=== PATIENT | male | born 1965 ===

== ENCOUNTER 2022-10-03 08:54 | Outpatient (REF) | payer OTHER, SELFPAY ==
--- NOTE | 2022-10-03 10:06 | MHC.AU.HA1 ---
Hearing Aid Evaluation Date of Visit: 10/03/22 Historical Information: Description of Hearing: Normal hearing thresholds 250-1500 Hz, dropping to a moderate sensorineural hearing loss at 4000 Hz, rising to borderline normal hearing levels at 8000 Hz, bilaterally Current personal amplification information, if applicable: NONE Summary: Doni was referred and medically cleared for binaural hearing aids by ENT Perla Sarkar MD to better facilitate communication as patient reports difficulties understanding speech and needs volume of TV increased significantly more than others he is with. 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 Advise custom hearing protection/[id number] to use for exposure. Hearing Aid Prescription: Based on the individual?s shared listening needs, communication environments, dexterity, desire for connectivity, and personal preferences, the following prescription for amplification has been made: Right ear: Make, Model, Color: Phonak Audeo L 70 -R [place] Brown Battery Size: Rechargeable Internal Medicine Specialist/Slim Tube: #2 M Type of Earmold/Dome/CShell/SlimTip: Open Dome Left ear: Left ear prescription to be same as Right Hearing Aid above: Make, Model, Color: Phonak Audeo L 70 -R [place] Brown Battery Size: Rechargeable Internal Medicine Specialist/Slim Tube: #2 M Type of Earmold/Dome/CShell/SlimTip: Open Dome Plan of Care: Patient wishes to purchase hearing aids as prescribed Action Taken/Action Needed: Hearing Instrument Fitting to be scheduled when materials arrive. Comments: Medical Clearance in chart. Primary Diagnosis: H90.3 Bilateral Sensorineural Hearing Loss Signature:Provider: Jarad Albert, [facility]
== END 2022-10-03 08:55 | disposition home or self-care (01) ==
LOC: HO.HAP 08:54
PROVIDERS: Visit Provider Internal Medicine
DX: Z46.1 Encounter for fitting and adjustment of hearing aid (principal); H90.3 Sensorineural hearing loss, bilateral
CPT/HCPCS: 92591

== ENCOUNTER 2022-10-12 08:23 | Outpatient (REF) | payer OTHER, SELFPAY ==
--- NOTE | 2022-10-12 09:08 | MHC.AU.HA2 ---
Hearing Instrument Fitting- Adult- Binaural Date of Visit: 10/12/22 Hearing Instruments Dispensed: Right Ear: Make, Model, Color, Serial Number: Shavon Shankso L 70-R [id number] Color: [place] Brown Director Of Marketing Analytics Repair Warranty: 12/31/2025 Director Of Marketing Analytics Loss and Damage Warranty: 12/31/2025 [facility] Service Plan: 10/12/2023 Battery Size: Rechargeable Shift Supervisor Melting/Slim Tube: #2 M 4.0 Earmold/Dome/CShell/SlimTip: Medium Open Dome Type of Wax Guard: CeruSheild Left Ear: Make, Model, Color, Serial Number: Shavon Khaneo L 70-R [id number] [place] Brown Director Of Marketing Analytics Repair Warranty: 01/20/2026 Director Of Marketing Analytics Loss and Damage Warranty: 01/20/2026 [facility] Service Plan: 10/12/2023 Battery Size: Rechargeable Shift Supervisor Melting/Slim Tube: #2 M 4.0 Earmold/Dome/CShell/SlimTip: Medium Open Dome Type of Wax Guard: CeruSheild Accessories/Assistive Technology: Phonak Assurance Associate Ease no EPS Summary of Fitting: Performed feedback global sourcing manager and real ear measurements. Comfortable at real ear settings. Discussed care, use, and rechargeability including manually turning on/off and changing domes and wax guards. Practiced insertion and removal. Discussed importance of consistent use and acclimatization period. Doni reported that his ears were beginning to feel itchy. Explained time needed to adjust to physical fit as well as sound quality. Did not pair to cell phone at this time as Doni reported that he will be able to do so himself. Recommendations: A hearing instrument follow-up was scheduled. Diagnosis Code(s): Primary Diagnosis: H90.3 Bilateral Sensorineural Hearing Loss Signature: Provider: Jarad Rosas, [facility]
== END 2022-10-12 08:24 | disposition home or self-care (01) ==
LOC: HO.HAP 08:23
PROVIDERS: Visit Provider Internal Medicine
DX: Z46.1 Encounter for fitting and adjustment of hearing aid (principal); H90.3 Sensorineural hearing loss, bilateral
CPT/HCPCS: V5011; V5020; V5160; V5261